=== PATIENT | female | born 1995 | race African-American/Black ===

== ENCOUNTER 2022-12-28 08:37 | Emergency (ER) | payer OTHER, SELFPAY ==
[2022-12-28] MEDS ORDERED: Ibuprofen 200 MG TAB ONE (11:13)
== END 2022-12-28 11:45 | disposition home or self-care (01) ==
LOC: CSHERS 08:37
DX: S16.1XXA Strain of muscle, fascia and tendon at neck level, initial encounter (principal); I10 Essential (primary) hypertension; F17.290 Nicotine dependence, other tobacco product, uncomplicated; V89.2XXA Person injured in unspecified motor-vehicle accident, traffic, initial encounter
CPT/HCPCS: 72040